=== PATIENT | female | born 1990 | race African-American/Black ===

== ENCOUNTER 2019-11-19 23:54 | Inpatient (IN) ==
[2019-11-20] MEDS ORDERED: ONDANSETRON 4 MG/2 ML VIAL IV PRN
[2019-11-20] MEDS ORDERED: LACTATED RINGERS 500 ML IV PRN
[2019-11-20] MEDS ORDERED: LACTATED RINGERS 1,000 ML IV SCH
[2019-11-20 00:46] LABS: Basophils % 0.2 % (0.0-0.8); Eosinophils # 0.1 10*3/uL (0.0-0.87); Eosinophils % 0.8 % (0.00-10.9); Hematocrit 30.5 VOL% (35.7-47.0); Hemoglobin 10.3 GM/DL (12.0-16.0); Immature Granulocytes % 0.8 %; Immature Granulocytes Absolute 0.07 #; Lymphocytes # 1.5 10*3/uL (1.4-4.0); Lymphocytes % 17.2 % (21.3-54.2); Mean Corpuscular HGB Conc 33.8 GM/DL (32-36); Mean Platelet Volume 9.1 FL (9.6-12.0); Monocytes % 8.9 % (1.7-12.7); Neutrophils % 72.1 % (38.7-73.9); Platelet Count 297 T/CUMM (130-400); Red Blood Count 3.28 MC/CUMM (3.8-5.5); Red Cell Distribution Width 12.7 % (9.3-17.3); White Blood Count 8.7 T/CUMM (4-12)
[2019-11-20 01:18] LABS: Albumin 2.6 G/DL (3.4-5.0); Bilirubin,Total 0.8 MG/DL (0.2-1.0); Calcium 9.2 MG/DL (8.5-10.1); Osmolality,Calculated 264.2 MOS/KG (273-304); Total Protein 6.7 G/DL (6.4-8.3)
[2019-11-20] MEDS ORDERED: BUTORPHANOL 2 MG/ML VIAL IV ONE (05:17)
[2019-11-20] MEDS ORDERED: diphenhydrAMINE 50 MG/1 ML VIAL IV PRN ×2 (07:42)
[2019-11-20] MEDS ORDERED: CITRIC ACID/SODIUM CITRATE 30 ML UDCUP PO ONE (07:42)
[2019-11-20] MEDS ORDERED: FAMOTIDINE 20 MG/2 ML VIAL IV ONE (07:42)
[2019-11-20] MEDS ORDERED: LACTATED RINGERS 1,000 ML IV ONE ×2 (07:42)
[2019-11-20] MEDS ORDERED: NALOXONE 0.4 MG/ML VIAL IV PRN (07:42)
[2019-11-20] MEDS ORDERED: ePHEDrine 50 MG/ML AMP IV PRN (07:42)
[2019-11-20] MEDS ORDERED: fentaNYL 2 MCG/ROPIV 0.2% EPID 100 ML EPIDURAL SCH (08:00)
[2019-11-20] MEDS ORDERED: OXYTOCIN/LR 20 UNIT/1,000 ML BAG IV SCH (09:00)
[2019-11-20] MEDS ORDERED: miSOPROStoL 200 MCG TABLET ONE (09:13)
[2019-11-20] MEDS ORDERED: METHYLERGONOVINE 0.2 MG/1 ML AMP ONE (09:14)
[2019-11-20 10:31] LABS: Amorphous Crystals,Urine Occasional /HPF (Few); Apearance,Urine CLEAR (Clear); Bilirubin,Urine Negative (Negative); Blood, Urine Moderate mg/dL (Negative); Glucose,Urine (UA) Negative (Negative); Ketones,Urine 5 mg/dL (Negative); Mucus,Urine Occasional /LPF (Occasional); Nitrite,Urine Negative (Negative); Protein,Urine Negative; RBC,Urine 14 /HPF (0-4); Squamous Epithelial Cell,Urine Occasional /HPF (0-10); Urine Color Yellow (Yellow); Urine Specific Gravity 1.008 (1.001-1.035); Urine Urobilinogen < 2.0 EU/DL (0.2-1.0); WBC,Urine 1 /HPF (0-6)
[2019-11-20] MEDS: IBUPROFEN 800 MG TABLET PO PRN ×2 (12:45→21:12)
[2019-11-20] MEDS ORDERED: POTASSIUM CHLORIDE 20 MEQ TABLET PO PRN (19:17)
[2019-11-20] MEDS: POTASSIUM CHLORIDE 20 MEQ TABLET PO SCH (21:11)
[2019-11-20] MEDS: DOCUSATE SODIUM 100 MG CAPSULE PO SCH (21:11)
[2019-11-21 07:45] LABS: Basophils % 0.3 % (0.0-0.8); Eosinophils # 0.1 10*3/uL (0.0-0.87); Eosinophils % 1.5 % (0.00-10.9); Hematocrit 26.5 VOL% (35.7-47.0); Hemoglobin 8.9 GM/DL (12.0-16.0); Immature Granulocytes % 0.8 %; Immature Granulocytes Absolute 0.07 #; Lymphocytes # 2.3 10*3/uL (1.4-4.0); Lymphocytes % 25.6 % (21.3-54.2); Mean Corpuscular HGB Conc 33.6 GM/DL (32-36); Mean Platelet Volume 9.6 FL (9.6-12.0); Monocytes % 7.5 % (1.7-12.7); Neutrophils % 64.3 % (38.7-73.9); Platelet Count 249 T/CUMM (130-400); Red Blood Count 2.82 MC/CUMM (3.8-5.5); Red Cell Distribution Width 12.7 % (9.3-17.3)
[2019-11-21] MEDS ORDERED: FERROUS SULFATE 325 MG TABLET PO SCH (09:00)
[2019-11-21] MEDS: DOCUSATE SODIUM 100 MG CAPSULE PO SCH (09:25)
[2019-11-21] MEDS: POTASSIUM CHLORIDE 20 MEQ TABLET PO SCH (09:25)
[2019-11-21 10:31] VITALS: BP 136/91
== END 2019-11-21 14:00 | disposition home or self-care (01) | DRG 560 ==
LOC: N.LDOUT 23:54 → N.LD 23:55 → N.OB 11-20 12:12
PROVIDERS: ADMIT Obstetrics & Gynecology; ATTEND Obstetrics & Gynecology

== ENCOUNTER 2021-01-05 23:50 | Inpatient (IN) ==
[2021-01-06] MEDS ORDERED: ONDANSETRON 4 MG/2 ML VIAL IV PRN (00:20)
[2021-01-06] MEDS ORDERED: MEPERIDINE 50 MG/1 ML VIAL IV PRN (00:20)
[2021-01-06 01:03] LABS: Basophils % 0.2 % (0.0-0.8); Eosinophils # 0.2 10*3/uL (0.0-0.87); Eosinophils % 1.7 % (0.00-10.9); Hematocrit 30.9 VOL% (35.7-47.0); Hemoglobin 10.7 GM/DL (12.0-16.0); Immature Granulocytes % 0.8 %; Immature Granulocytes Absolute 0.08 #; Lymphocytes # 1.6 10*3/uL (1.4-4.0); Lymphocytes % 16.3 % (21.3-54.2); Mean Corpuscular HGB Conc 34.6 GM/DL (32-36); Mean Corpuscular Volume 93.1 FL (87-102); Mean Platelet Volume 9.4 FL (9.6-12.0); Monocytes % 7.1 % (1.7-12.7); Neutrophils % 73.9 % (38.7-73.9); Platelet Count 257 T/CUMM (130-400); Red Blood Count 3.32 MC/CUMM (3.8-5.5); Red Cell Distribution Width 12.4 % (9.3-17.3)
[2021-01-06 01:09] LABS: Alanine Aminotransferase 13 U/L (13-56); Albumin 2.7 G/DL (3.4-5.0); Alkaline Phosphatase 123 U/L (45-117); Aspartate Amino Transferase 13 U/L (0-37); Bilirubin,Total < 0.39 MG/DL (0.2-1.0); Blood Urea Nitrogen 8 MG/DL (7-18); Calcium 9.2 MG/DL (8.5-10.1); Carbon Dioxide 22 MMOL/L (21-32); Estimated Glom Filtration Rate 165 ML/MIN; Glucose 94 MG/DL (74-106); Osmolality,Calculated 270.8 MOS/KG (273-304); Potassium 3.6 MMOL/L (3.5-5.1); Sodium 137 MMOL/L (136-145); Total Protein 6.9 G/DL (6.4-8.2)
[2021-01-06] MEDS: LACTATED RINGERS 1,000 ML IV SCH ×2 (04:02→06:43)
[2021-01-06] MEDS ORDERED: PROMETHAZINE 25 MG/1 ML VIAL IM PRN (04:11)
[2021-01-06] MEDS ORDERED: FAMOTIDINE 20 MG/2 ML VIAL IV ONE (04:11)
[2021-01-06] MEDS ORDERED: diphenhydrAMINE 50 MG/1 ML VIAL IV PRN (04:11)
[2021-01-06] MEDS ORDERED: CITRIC ACID/SODIUM CITRATE 30 ML UDCUP PO ONE (04:11)
[2021-01-06] MEDS ORDERED: NALOXONE 0.4 MG/ML VIAL IV PRN (04:11)
[2021-01-06] MEDS ORDERED: ePHEDrine 50 MG/ML VIAL IV PRN (04:11)
[2021-01-06] MEDS ORDERED: hydrOXYzine HCL 25 MG/1 ML VIAL IM PRN (04:11)
[2021-01-06] MEDS ORDERED: fentaNYL 2 MCG/ROPIV 0.2% EPID 100 ML EPIDURAL SCH (04:30)
[2021-01-06] MEDS ORDERED: AMPICILLIN INJ 2,000 MG in SODIUM CHLORIDE 0.9% 100 ML IV ONE (06:03)
[2021-01-06] MEDS ORDERED: OXYTOCIN/LR 20 UNIT/1,000 ML BAG IV SCH (08:30)
[2021-01-06 09:02] LABS: Bilirubin,Urine Negative (Negative); Blood, Urine Negative (Negative); Glucose,Urine (UA) Negative (Negative); Ketones,Urine Negative (Negative); Mucus,Urine Occasional /LPF (Occasional); Nitrite,Urine Negative (Negative); Protein,Urine Negative; RBC,Urine 5 /HPF (0-4); Urine Appearance CLEAR (Clear); Urine Color Yellow (Yellow); Urine Specific Gravity 1.016 (1.001-1.035); Urine Urobilinogen < 2.0 EU/DL (0.2-1.0)
[2021-01-06] MEDS ORDERED: miSOPROStoL 200 MCG TABLET ONE (09:57)
[2021-01-06] MEDS ORDERED: TRANEXAMIC ACID 1,000 MG/10 ML VIAL ONE (09:57)
[2021-01-06] MEDS ORDERED: CARBOPROST TROMETHAMINE 250 MCG/ML AMP IM ONE (09:58)
[2021-01-06] MEDS ORDERED: METHYLERGONOVINE 0.2 MG/1 ML AMP ONE (09:58)
[2021-01-06] MEDS ORDERED: AMPICILLIN INJ 1,000 MG in SODIUM CHLORIDE 0.9% 100 ML IV SCH (10:15)
[2021-01-06] MEDS ORDERED: OXYTOCIN/LR 30 UNIT/1,000 ML BAG IV ONE (10:58)
[2021-01-06 12:01] LABS: Cord Venous Blood HCO3 23.2 MMOL/L; Cord Venous Blood PCO2 47.3 MMHG; Cord Venous Blood PO2 21.8
[2021-01-06] MEDS ORDERED: RHO(D) IMMUNE GLOBULIN 300 MCG SYRINGE IM ONE (14:46)
[2021-01-06] MEDS ORDERED: MEASLES/MUMPS/RUBELLA VACCINE 0.5 ML VIAL SUBCUT ONE (14:46)
[2021-01-06] MEDS ORDERED: OXYTOCIN/LR 20 UNIT/1,000 ML BAG IV ONE (14:46)
[2021-01-06] MEDS ORDERED: BISACODYL 10 MG SUPP RECTAL PRN (14:46)
[2021-01-06] MEDS ORDERED: LANOLIN 50% CREAM 0.3 OZ TUBE TOP PRN (14:46)
[2021-01-06] MEDS ORDERED: BENZOCAINE 20%/MENTHOL 0.5% SPRAY 56 GM CAN TOP PRN (14:46)
[2021-01-06] MEDS ORDERED: WITCH HAZEL PADS 100/JAR TOP PRN (14:46)
[2021-01-06] MEDS ORDERED: ACETAMINOPHEN 325 MG TABLET PO PRN (14:46)
[2021-01-06] MEDS ORDERED: oxyCODONE/ACETAMINOPHEN 5-325 MG TABLET PO PRN ×2 (14:46)
[2021-01-06] MEDS ORDERED: DIPH/TET/ACEL PERT BOOSTER VACCINE 0.5 ML VIAL IM ONE (14:46)
[2021-01-06] MEDS ORDERED: HYDROCORTISONE 2.5% RECTAL CREAM 30 GM TUBE TOP PRN (14:46)
[2021-01-06] MEDS: IBUPROFEN 800 MG TABLET PO PRN ×2 (14:51→23:23)
[2021-01-06] MEDS: DOCUSATE SODIUM 100 MG CAPSULE PO SCH (21:09)
[2021-01-07 05:13] LABS: Basophils % 0.4 % (0.0-0.8); Eosinophils # 0.2 10*3/uL (0.0-0.87); Eosinophils % 2.1 % (0.00-10.9); Hematocrit 27.8 VOL% (35.7-47.0); Hemoglobin 9.7 GM/DL (12.0-16.0); Immature Granulocytes % 0.8 %; Immature Granulocytes Absolute 0.08 #; Lymphocytes # 2.2 10*3/uL (1.4-4.0); Mean Corpuscular HGB Conc 34.9 GM/DL (32-36); Mean Corpuscular Volume 92.7 FL (87-102); Mean Platelet Volume 9.5 FL (9.6-12.0); Monocytes % 6.8 % (1.7-12.7); Neutrophils % 66.9 % (38.7-73.9); Platelet Count 230 T/CUMM (130-400); Red Cell Distribution Width 12.2 % (9.3-17.3); White Blood Count 9.7 T/CUMM (4-12)
[2021-01-07] MEDS ORDERED: FERROUS SULFATE 300 MG/5 ML UDCUP PO SCH (09:00)
[2021-01-07] MEDS: DOCUSATE SODIUM 100 MG CAPSULE PO SCH ×2 (09:34→20:56)
[2021-01-07] MEDS: IBUPROFEN 800 MG TABLET PO PRN ×2 (09:36→23:36)
[2021-01-07] MEDS: FERROUS SULFATE 325 MG TABLET PO SCH ×2 (09:39→20:56)
[2021-01-08] MEDS: DOCUSATE SODIUM 100 MG CAPSULE PO SCH (10:02)
[2021-01-08] MEDS: FERROUS SULFATE 325 MG TABLET PO SCH (10:02)
[2021-01-08 12:47] VITALS: BP 137/72
== END 2021-01-08 14:25 | disposition home or self-care (01) | DRG 560 ==
LOC: N.LD 23:50 → N.OB 01-06 14:59
PROVIDERS: ADMIT Obstetrics & Gynecology; ATTEND Obstetrics & Gynecology